=== PATIENT | female | born 1945 | race Caucasian/White ===

== ENCOUNTER → 2016-08-19 | Outpatient (CLI) | payer OTHER ==
[~2016-08-19] MED LIST: AMOX875T PO; ASCA500 PO; ASPEC81 PO; ATOR10TA88 PO; CALCTAB5 PO; CLX20 PO; FRRG PO; FSM70 PO; GARLIC SUPPLEMENT; GLC/500 PO; HEALTH PO; LEVO88TA3 PO; MULT-506 PO; PRED20TA PO; PRT/40 PO; SYN75 PO; TRAM37.52 PO; VITA400C15 PO; [UNRECOGNIZED DRUG - OTHER]
--- NOTE | 2016-08-19 08:26 | DIAGNOSTIC IMAGING REPORT ---
SINUS CT CT DOSE: 501.27 mGy.cm HISTORY: CHRONIC SINUSITIS TECHNIQUE: Multiaxial CT images of the paranasal sinuses were performed and reformatted in the coronal plane without the use of contrast. COMPARISON: Sinus CT 03/21/2007. FINDINGS: The right frontal sinus is not pneumatized. Mild mucosal thickening within the left frontal sinus and residual ethmoid air cells. Mild mucosal thickening within the sphenoid sinuses with bubbly secretions within the left sphenoid sinus. This has slightly progressed. Left nasal septal deviation. There is also a 1.9 cm anterior nasal septal perforation, unchanged. There is also slight progression of the small fluid levels and moderate mucosal thickening within the bilateral maxillary sinuses. The mastoid air cells are clear. Status post bilateral uncinectomies and partial ethmoidectomies. Opacified right cynthia bullosa. The orbits and visualized brain parenchyma are unremarkable. IMPRESSION: 1. Slight progression of the acute on chronic paranasal sinusitis as described above. 2. Interval uncinectomy since partial ethmoidectomies. 3. Left nasal septal deviation and nasal septal perforation are again noted. Electronically signed by: Moses March M.D. 08/19/2016 8:32 AM Dictated Date/Time: 08/19/2016 8:23 AM
== END | disposition home or self-care (01) ==
LOC: C.CTS 08:04
PROVIDERS: ATTEND Otolaryngology
DX: J32.9 Chronic sinusitis, unspecified (principal); J34.2 Deviated nasal septum

== ENCOUNTER → 2016-09-30 | Outpatient (CLI) | payer OTHER ==
[~2016-09-30] MED LIST changes: -ASCA500 PO; -CLX20 PO; -FRRG PO; -FSM70 PO; -GARLIC SUPPLEMENT; -SYN75 PO; -VITA400C15 PO; -[UNRECOGNIZED DRUG - OTHER]
== END | disposition home or self-care (01) ==
LOC: C.CPL 14:38
PROVIDERS: ATTEND Otolaryngology
DX: Z01.810 Encounter for preprocedural cardiovascular examination (principal); I49.1 Atrial premature depolarization

== ENCOUNTER → 2016-10-03 | Outpatient (CLI) | payer OTHER ==
--- NOTE | 2016-10-04 14:36 | MAMMOGRAPHY REPORT ---
BILATERAL DIGITAL SCREENING MAMMOGRAM WITH CAD: 10/03/2016 CLINICAL HISTORY: Routine screening. Patient has no complaints. TECHNIQUE: Bilateral CC, MLO and a repeat left MLO view was performed as a technical repeat due to mo tion. Current study was also evaluated with a Computer Aided Detection (CAD) system. COMPARISON: Comparison is made to exams dated: 10/02/2015 mammogram, 09/17/2014 mammogram, 09/16/2013 m ammogram, 09/14/2012 mammogram, 09/14/2011 mammogram, and 09/01/2010 mammogram - [facility] enter. BREAST COMPOSITION: The tissue of both breasts is almost entirely fatty. FINDINGS: There are a few benign round calcifications in the breasts. A stable 2mm grouping of punct ate monomorphic microcalcifications in the lower outer posterior left breast is unchanged dating back to at least 2012, therefore likely benign. No new suspicious mass, architectural distortion or clus ter of microcalcifications is seen. IMPRESSION: ACR BI-RADS CATEGORY 1: NEGATIVE There is no mammographic evidence of malignancy. A 1 year screening mammogram is recommended. The pa tient will receive written notification of the results. Approximately 10% of breast cancers are not detected with mammography. A negative mammographic report should not delay biopsy if a clinically suggestive mass is present. Rosita Morelos M.D. ay/:10/04/2016 13:43:12 Office Clerk Assistant: Catherine PEDRO)(Libby), [facility] letter sent: Normal 1/2 BI-RADS Code: ACR BI-RADS Category 1: Negative
== END | disposition home or self-care (01) ==
LOC: C.MAMM 14:24
PROVIDERS: ATTEND Family Medicine
DX: Z12.31 Encounter for screening mammogram for malignant neoplasm of breast (principal)

== ENCOUNTER → 2016-10-06 | Day surgery (SDC) | payer OTHER ==
[2016-09-27 08:20] VITALS: Ht 165.1 cm; Wt 84.1 kg
--- NOTE | 2016-10-05 16:00 | History and Physical: Surg Cnt ---
History & Physical Date Oct 05, 2016. Chief Complaint chronic sinusitis History of Present Illness The patient is a 71 year old female with complaints of chronic sinusitis, septal perforation Additional History Hepatic Disease: No Endocrine Disorder: No Kidney Disease: No Hypertension: No Heart Disease: No Bleeding Tendencies: No Infectious Diseases: No Allergies Coded Allergies: Adhesives (Verified Allergy, Mild, rash, 08/07/07) NO KNOWN DRUG ALLERGIES (Verified Allergy, Unknown, ., 09/27/16) Home Medications Scheduled Amoxicillin & Pot Clavulanate (Augmentin 875-125 mg), 1 TAB PO BID Aspirin Enteric Coated (Ecotrin Or Generic *), 81 MG PO Q2D Atorvastatin (Lipitor), 5 MG PO QAM Calcium (Caltrate), 1 TAB PO BID Levothyroxine Sodium (Levothyroxine Sodium), 88 MCG PO QAM Metformin Hcl (Glucophage), 500 MG PO QAM Multivitamin (Multivitamin), 1 TAB PO BID Pantoprazole (Pantoprazole Sodium), 40 MG PO QAM Prednisone (Prednisone), 20 MG PO UD [Heart Health], 1 TAB PO BID Physical Examination Skin: warm/dry, no rash Eyes: normal inspection, EOMI, sclerae normal ENT: normal ENT inspection, pharynx normal, + pertinent finding (septal perforation, deviation to left, adhesions and mucopurulent drainage) Head: normocephalic, atraumatic Neck: supple, no adenopathy, trachea midline Respiratory/Chest: lungs clear, normal breath sounds, no respiratory distress Cardiovascular: regular rate, rhythm, no edema, no murmur Abdomen / GI: normal bowel sounds, non tender Back: normal inspection Extremities: normal inspection, normal range of motion Neurologic/Psych: no motor/sensory deficits, alert, normal reflexes, oriented x 3 Diagnosis chronic sinusitis Plan of Treatment endoscopic sinus surgery, balloon eustschian tubes
[~2016-10-06] VITALS: Ht 165.1 cm; Wt 84.1 kg
[~2016-10-06] MED LIST changes: +ATROPINE SULFATE 0.1 MG/ML 5ML SYR IV PRN; +BACITRACIN OINT 15 GM TUBE ONE; +CEFAZOLIN 2000 MG/60 ML D5W IV SCH; +DEXAMETHASONE SOD INJ 4 MG/ML VIAL ONE; +EpHEDrine SULFATE INJ 50 MG/ML AMP IV PRN; +EpINEphrine INJ 1MG/ML AMP 1 MG/ML AMP ONE; +FENTANYL CITRATE INJ 50 MCG/1 ML 2 ML VIAL IV PRN; +FENTANYL CITRATE INJ 50 MCG/1 ML 2 ML VIAL ONE; +FLUMAZENIL 0.1 MG/1 ML 10 ML VIAL IV PRN; +GELATIN SPONGE 12-7MM ONE; +GLYCOPYRROLATE INJ 0.2 MG/ML VIAL ONE; +LABETALOL HCL IV 5 MG/ML 20ML IV PRN; +LACTATED RINGER'S 1000ML 1,000 ML IV SCH; +LIDO 2%/EPINEPHRINE 1:100000 20 ML VIAL INFIL ONE; +LIDOCAINE 4% MPF SOAK 5 ML = 1 DOSE TOP ONE; +LIDOCAINE HCL 2% 2 ML VIAL (20MG/ML) ONE; +MIDAZOLAM HCL 1 MG/ML 2ML VIAL ONE; +NALOXONE HCL 0.4 MG/1 ML VIAL/CARP IV PRN; +NEOSTIGMINE METHYLSULFATE 5 MG/5 ML SYR ONE; +ONDANSETRON INJ 2 MG/ML 2 ML VIAL IV PRN; +ONDANSETRON INJ 2 MG/ML 2 ML VIAL ONE; +PROMETHAZINE HCL INJ 12.5 MG in SODIUM CHLORIDE 0.9% 50ML 50 ML IV PRN; +PROPOFOL IV EMULSION 10 MG/ML 20 ML VIAL IV ONE; +SODIUM CHLORIDE 0.9% 1000ML 1,000 ML IV SCH; +SUCCINYLCHOLINE CHLORIDE 20 MG/ML 10 ML VIAL IV ONE; +TRAMADOL/ACETAMINOPHEN 37.5/325MG TAB PO PRN
--- NOTE | 2016-10-06 06:58 | History & Physical Bridge Note ---
H&P Re-Evaluation Bridge Note: I have examined the patient, reviewed the History & Physical and in the interval since the performance of the History & Physical I have noted the following changes of clinical significance: No changes noted
--- NOTE | 2016-10-06 08:49 | Discharge Instructions-SurgCtr ---
Discharge Instructions Date of Service Oct 06, 2016. Visit Reason for Visit: Chronic Sinusitis, Adhesions, Eustachian Tube Dysf Discharge Discharge Diagnosis / Problem: same plus septal perforation with deviation to left Discharge Goals Goal(s): Improve disease control Medications Stopped Medications Name(s): Metformin last dose 10/03/16 Activity Recommendations Activity Limitations: per Instructions/Follow-up section Anesthesia . Post Anesthesia Instructions: If you have had General Anesthesia or IV Sedation: * Do not drive today. * Resume driving when surgeon permits. * Do not make important decisions or sign legal documents today. * Call surgeon for: 1. Temperature elevations greater than 101 degrees F. 2. Uncontrollable pain. 3. Excessive bleeding. 4. Persistent nausea and vomiting. 5. Medication intolerance (nausea, vomiting or rash). * For nausea and vomiting use only clear liquids such as: tea, soda, bouillon until nausea subsides, then gradually increase diet as tolerated. * If you have any concerns or questions, call your surgeon's office. If physician is unavailable and it is an emergency, call 911 or go to the nearest emergency room. . Instructions / Follow-Up Instructions / Follow-Up ACTIVITY RECOMMENDATIONS: * Being up and around is good, but no strenuous activity, heavy lifting or physical exertion for one week. * Keep your head elevated 30 degrees when lying down or sleeping. * Do not blow your nose for 48 hours, sniff back instead. * Avoid hot showers. OVER THE COUNTER MEDICATIONS: * You may use Tylenol * Avoid aspirin or aspirin containing products, e.g. as they may increase bleeding. SPECIAL CARE INSTRUCTIONS: * Expect to have bloody drainage from your nose and/or down your throat for one to three days. Change drip pad as needed. * Begin irrigating your nose with saline solution today, at least six to ten times per day and sniff back to help remove old clots or crust. * You may experience nasal and facial congestion, pain and pressure, this is normal. * Please call with any significant and/or progressive pain, redness, swelling around the eyes, visual changes, fever of 101.5 degrees F, active bleeding or any problems or concerns. * If active bleeding occurs, spray the nose three times at one minute intervals with Afrin spray and call or cell phone: . If unable to reach the doctor, go to the nearest Emergency Department. Special Diet: * Avoid extremely hot fluids. FOLLOW UP VISIT: Follow-up Visit with Dr. Gambino If not already scheduled, please call to schedule. Diet Recommendations Home Diet: no limitations Procedures Procedures Performed: Endoscopic Sinus Surgery, Right and Left Frontal, Right and Left Sphenoid, Right and Left Maxillary, Right and Left Total Ethmoidal Sinusotomies, Septoplasty, Bilateral Balloon Eustachian Tubes Pending Studies Studies pending at discharge: no Medical Emergencies . Who to Call and When: Medical Emergencies: If at any time you feel your situation is an emergency, please call 911 immediately. . Non-Emergent Contact Non-Emergency issues call your: Primary Care Provider . . "Provider Documentation" section prepared by Xi Gambino. . [place] Drug Monitoring Program Search Results: no issues identified
--- NOTE | 2016-10-06 09:17 | OPERATIVE REPORT ---
DATE OF OPERATION: 10/06/2016 PREOPERATIVE DIAGNOSIS: Chronic sinusitis and eustachian tube dysfunction. POSTOPERATIVE DIAGNOSIS: Same plus septal deviation with septal perforation causing obstruction on the left side. PROCEDURE: Right and left frontal, right and left sphenoid, right and left total ethmoid and right and left maxillary sinus antrostomies with ballooning of eustachian tubes and endoscopic septoplasty. SURGEON: Dr. Gambino. ANESTHESIA: General endotracheal. COMPLICATIONS: None. BLOOD LOSS: 30 mL. HISTORY OF PRESENT ILLNESS: A 71-year-old lady recurrent chronic sinusitis surgery by me 9 years ago, found to have persistent sinusitis for the last [address] scan with sphenoid, maxillary, ethmoid mucosal thickening and left nasofrontal sinus mucosal thickening with hypoplastic right frontal sinus. Above procedure was felt to be indicated. PROCEDURE: The patient was brought to the operating room and placed in supine position. General endotracheal anesthesia was induced, prepped, draped in usual sterile manner. Nose decongested using cottonoids with a solution of 4 mL of 4% Xylocaine with 1 mL of epinephrine. Injection of 2% Xylocaine with 1:100,000 strength epinephrine was also used. BrainJustinmind device calibrated and used for the procedure. The right sphenoid was cannulated with guidewire and dilated using the 6 mm balloon. The guidewire was removed and the sphenoid sinus was irrigated clean with saline. The left sphenoid was also cannulated, dilated and irrigated with the 6 mm balloon with BrainLAB computer guidance. The left nasofrontal duct was cannulated with guidewire and dilated using the 6 mm balloon. Guidewire was left in place as a marker for our frontal sinusotomy. The adhesions from the middle turbinate laterally were removed using the shaver. Dissection was continued removing polypoid tissue in the anterior and then the posterior ethmoid opening up the residual air cells posteriorly, opening up the entire ethmoid cavity and opening up the previously dilated nasal frontal duct. The sphenoid was opened by removing polypoid tissue at the inferior border of the superior turbinate at the anterior face of the sphenoid. 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 This was found using the seeker and then opened by connecting it to the antrostomy opening using the seeker and then using the shaver to connect the 2 openings. Part of the mucosa was biopsied using the biting Blakesley forceps. A culture was also taken of the left maxillary sinus. A right frontal sinusotomy, total ethmoidectomy, maxillary sinus antrostomy and sphenoidotomy was performed in a similar manner. The right frontal sinus was hypoplastic and was opened using the shaver removing scar tissue and adhesions blocking the nasofrontal duct. The ethmoids were also opened. The right maxillary sinus was also opened from the previous antrostomy. At this point, ballooning of the eustachian tubes were performed using the same balloon without guidewire dilating each eustachian tube at 12 atmospheric pressures with the balloon distended for 1 minute on each side. Because of the obstruction toward the left side endoscopic septoplasty was performed behind the septal perforation. Incision was made along the septum using the 15 blade and mucoperichondrium was elevated off the left side of the septum and then bilateral posterior tunnels were made to isolate a large bony and cartilaginous spur projecting to the left. This was removed using the Pershing dissector and the Blakesley forceps and the John-Sherry rongeurs returning the septum to the midline. Propel stents were placed in the middle meatus area. The septum was packed with pieces of Gelfoam with a half on each side of the septum posterior to the septal perforation. The patient tolerated the procedure well and was taken to recovery area in satisfactory condition. I attest to the content of the Intraoperative Record and any orders documented therein. Any exceptions are noted below. [place]
[2016-10-06 09:20] VITALS: TEMP 36.7
--- NOTE | 2016-10-06 09:41 | Anesthesia Progress Nt - [facility] ---
Anesthesia Post Op Note Date & Time Oct 06, 2016 at 09:41 Vital Signs Pain Intensity: 0 Vital Signs Past 12 Hours Date Time Temp Pulse Resp B/P (MAP) Pulse Ox O2 Delivery O2 Flow Rate FiO2 10/06/16 09:20 36.7 66 16 161/76 (104) 97 Room Air 10/06/16 09:15 152/97 10/06/16 09:14 36.6 68 14 97 Room Air 10/06/16 09:13 66 13 98 10/06/16 09:13 68 13 10/06/16 09:12 67 12 96 10/06/16 09:12 68 12 10/06/16 09:10 145/82 10/06/16 09:07 68 19 10/06/16 09:07 70 19 99 10/06/16 09:06 66 13 10/06/16 09:06 68 13 99 10/06/16 09:05 153/92 10/06/16 09:01 70 15 10/06/16 09:01 74 15 98 10/06/16 09:00 148/78 10/06/16 08:56 74 13 10/06/16 08:56 76 13 99 10/06/16 08:55 157/87 10/06/16 08:54 69 13 10/06/16 08:54 69 13 99 10/06/16 08:51 157/92 10/06/16 08:49 78 13 136/104 99 10/06/16 08:49 36.1 78 16 136/104 97 Humidified Oxygen 6 Mask 10/06/16 08:49 76 13 10/06/16 06:29 37 77 16 144/81 (102) 98 Room Air Notes Mental Status: alert / awake / arousable, participated in evaluation Pt Amnestic to Procedure: Yes Nausea / Vomiting: adequately controlled Pain: adequately controlled Airway Patency, RR, SpO2: stable & adequate BP & HR: stable & adequate Hydration State: stable & adequate Anesthetic Complications: no major complications apparent
[2016-10-06 09:47] VITALS: BP 154/78; PULSE 64; O2SAT 99
== END | disposition home or self-care (01) ==
LOC: X.SURG 06:14
PROVIDERS: ATTEND Otolaryngology
DX: J34.2 Deviated nasal septum (principal); J01.41 Acute recurrent pansinusitis; H69.83 Other specified disorders of Eustachian tube, bilateral; E03.9 Hypothyroidism, unspecified; E11.9 Type 2 diabetes mellitus without complications; E78.5 Hyperlipidemia, unspecified

== ENCOUNTER 2017-04-04 16:13 | Emergency (ER) | payer OTHER ==
[~2017-04-04] VITALS: Ht 165.1 cm; Wt 75.7 kg
[~2017-04-04 16:13] MED LIST changes: +ATOR10TA82 PO; -ATOR10TA88 PO; -ATROPINE SULFATE 0.1 MG/ML 5ML SYR IV PRN; -BACITRACIN OINT 15 GM TUBE ONE; -CEFAZOLIN 2000 MG/60 ML D5W IV SCH; -DEXAMETHASONE SOD INJ 4 MG/ML VIAL ONE; -EpHEDrine SULFATE INJ 50 MG/ML AMP IV PRN; -EpINEphrine INJ 1MG/ML AMP 1 MG/ML AMP ONE; -FENTANYL CITRATE INJ 50 MCG/1 ML 2 ML VIAL IV PRN; -FENTANYL CITRATE INJ 50 MCG/1 ML 2 ML VIAL ONE; -FLUMAZENIL 0.1 MG/1 ML 10 ML VIAL IV PRN; -GELATIN SPONGE 12-7MM ONE; -GLYCOPYRROLATE INJ 0.2 MG/ML VIAL ONE; -LABETALOL HCL IV 5 MG/ML 20ML IV PRN; -LACTATED RINGER'S 1000ML 1,000 ML IV SCH; -LIDO 2%/EPINEPHRINE 1:100000 20 ML VIAL INFIL ONE; -LIDOCAINE 4% MPF SOAK 5 ML = 1 DOSE TOP ONE; -LIDOCAINE HCL 2% 2 ML VIAL (20MG/ML) ONE; -MIDAZOLAM HCL 1 MG/ML 2ML VIAL ONE; -NALOXONE HCL 0.4 MG/1 ML VIAL/CARP IV PRN; -NEOSTIGMINE METHYLSULFATE 5 MG/5 ML SYR ONE; -ONDANSETRON INJ 2 MG/ML 2 ML VIAL IV PRN; -ONDANSETRON INJ 2 MG/ML 2 ML VIAL ONE; +PANT40TA2 PO; -PRED20TA PO; -PROMETHAZINE HCL INJ 12.5 MG in SODIUM CHLORIDE 0.9% 50ML 50 ML IV PRN; -PROPOFOL IV EMULSION 10 MG/ML 20 ML VIAL IV ONE; -PRT/40 PO; -SODIUM CHLORIDE 0.9% 1000ML 1,000 ML IV SCH; -SUCCINYLCHOLINE CHLORIDE 20 MG/ML 10 ML VIAL IV ONE; -TRAM37.52 PO; -TRAMADOL/ACETAMINOPHEN 37.5/325MG TAB PO PRN
[2017-04-04 16:18] VITALS: Ht 165.1 cm; Wt 75.7 kg
[2017-04-04] MEDS ORDERED: XYLOCAINE 1%/SOD BICARB 20 ML VIAL INFIL STA (16:29)
[2017-04-04] MEDS ORDERED: DIPHTHERIA/TETANUS/PERTUSSIS 0.5 ML SYR/VIAL IM. ONE (16:30)
--- NOTE | 2017-04-04 17:04 | EMERGENCY ROOM VISIT NOTE ---
ED Visit Note First contact with patient: 16:21 CHIEF COMPLAINT: Splinter in left thumb HISTORY OF PRESENT ILLNESS: This 71-year-old [id number] female patient presents to the emergency department, ambulatory, approximately 6 hours after getting a large splinter in her left thumb. The patient states she was looking for her cat, and standing on a stairway. She states she backed down the steps when she accidentally missed a step, grabbing the handrail and noticing a wood splinter in the pad of her left thumb. The bleeding has stopped. Denies weakness or numbness of the finger. The patient has full range of motion of the fingers. The patient rates the pain as throbbing and 5/10. The patient denies any other injuries. The patient's tetanus shot is not up to date. She did go to work today to find coverage, and then went to urgent care. At urgent care, they were concerned about attempts to remove the splinter, so sent her to the emergency department. REVIEW OF SYSTEMS: A 6 system review of systems was completed with positives and pertinent negatives listed in the HPI. ALLERGIES: Adhesives MEDICATIONS: Synthroid, metformin, atorvastatin, Zantac PMH: GERD, hypothyroidism, diabetes, hyperlipidemia SOCIAL HISTORY: The patient lives locally with family. She denies drug, alcohol , tobacco use. PHYSICAL EXAM: Vital Signs: Reviewed Nurse's notes, vital signs stable. GENERAL : This is a 71-year-old white female, in no acute distress, well developed, well nourished. SKIN: There is a wood splinter which extends through the pad of the thumb and exits at approximately the midportion of the thumb. There is no bleeding. No deep structures such as tendons, bones, or significant blood vessels are seen in the base of the wound. Extension and flexion of the finger is full and strong. Full range of motion of the wrist and other fingers. Capillary refill less than 2 seconds. Normal sensation to light and sharp touch. EMERGENCY DEPARTMENT COURSE: I examined the patient. Verbal consent was obtained to perform the procedure. Using sterile technique the wound was cleansed with Betadine. 4 ml of 1% buffered lidocaine was used to perform a digital block to anesthetize the patient. The area was sterilely draped. Once the patient was anesthetized, the thumb was cleansed with betadine. The splinter was removed successfully with forceps from one end. There was no retained foreign body noted. The wound was copiously irrigated under pressure with sterile saline. The patient tolerated the procedure well. The area was cleaned with sterile saline and the wound was dressed with bacitracin ointment and a bandage. The patient will be started on 5 days of Keflex prophylactically due to the length of time the splinter remained embedded. Discharge instructions reviewed. The patient was discharged home in good condition. The patient was seen and evaluated by Dr. Castorena. I attest that I have personally reviewed the patient's current medication list. Blood Pressure Screening: Patient was found to have a slightly elevated blood pressure due to circumstances. I do not believe that the patient requires hypertension monitoring. Differential diagnosis includes fracture, foreign body, splinter, cellulitis, infection, abscess, and others DIAGNOSIS: Foreign body of left thumb, embedded wood splinter Current/Historical Medications Scheduled Amoxicillin & Pot Clavulanate (Augmentin 875-125 mg), 1 TAB PO BID Aspirin Enteric Coated (Ecotrin Or Generic *), 81 MG PO Q2D Atorvastatin (Lipitor), 5 MG PO QAM Calcium (Caltrate), 1 TAB PO BID Cephalexin Monohydrate (Keflex), 500 MG PO TID Levothyroxine Sodium (Levothyroxine Sodium), 88 MCG PO QAM Metformin Hcl (Glucophage), 500 MG PO QAM Multivitamin (Multivitamin), 1 TAB PO BID Pantoprazole (Pantoprazole Sodium), 40 MG PO QAM [Heart Health], 1 TAB PO BID Allergies Coded Allergies: Adhesives (Verified Allergy, Mild, rash, 04/04/17) Vital Signs Date Time Temp Pulse Resp B/P (MAP) Pulse Ox O2 Delivery O2 Flow Rate FiO2 04/04/17 16:18 36.8 73 20 176/82 99 Room Air Medications Administered Medications (Trade) Dose Ordered Sig/Chasidy Route Start Time Stop Time Status Last Admin Dose Admin Diphtheria/ Pertussis/Tetanus Vacc (Adacel Inj) 0.5 ml ONCE ONCE IM. 04/04/17 16:30 04/04/17 16:31 DC 04/04/17 16:43 0.5 ML Departure Information Impression Primary Impression: Embedded wood splinter Additional Impression: Foreign body finger Dispostion Home / Self-Care Condition GOOD Prescriptions Cephalexin Monohydrate (Keflex) 500 Mg Cap 500 MG PO TID for 5 Days, #15 CAP Prov: Charito Mg, ANALI 04/04/17 Referrals Flaquito Neal DO (PCP) Patient Instructions ED Foreign Body Splinter Removal, [facility] Additional Instructions You were seen in the emergency department today for a splinter in your left thumb. This was successfully removed. Cephalexin(Keflex) 500mg: Take one pill three times daily for 5 days to prevent skin infection. All antibiotics can cause diarrhea. If this occurs and you feel worse or it does not resolve in 1-2 days follow up with your doctor or return to the Emergency Department as this could be signs of serious underlying problems. Any medication can cause an allergic reaction, stop the pills immediately and return to the ER for rash, hives, breathing difficulties, or swelling. Please keep the wound clean and dry. This can be done with soap and water. Please keep the wound bandaged with antibiotic ointment and a clean dressing for the next 24-48 hours or until it has closed. After this time, you can keep the wound open to air. Follow-up with your PCP for re-check in 2-3 days. Return to the ED for significant redness, swelling, purulent drainage, fever, chills, nausea, body aches, or other concerning symptoms. Problem Qualifiers
[2017-04-04] MEDS ORDERED: CEPH500C PO (17:16)
--- NOTE | 2017-04-04 17:27 | EMERGENCY ROOM VISIT NOTE ---
ED Visit Note First contact with patient: 16:21 The patient was seen and examined with Charito Mg PA-C. I agree with the history, physical and findings. Please see the note for disposition and details.
[2017-04-04 17:37] VITALS: BP 140/70; PULSE 58; TEMP 36.8; O2SAT 98
== END 2017-04-04 17:39 | disposition home or self-care (01) ==
LOC: C.EDB 16:16 → C.EDD 17:39
DX: S60.352A Superficial foreign body of left thumb, initial encounter (principal); W45.8XXA Other foreign body or object entering through skin, initial encounter; Y92.89 Other specified places as the place of occurrence of the external cause; E03.9 Hypothyroidism, unspecified; K21.9 Gastro-esophageal reflux disease without esophagitis; E11.9 Type 2 diabetes mellitus without complications; E78.5 Hyperlipidemia, unspecified; Z91.048 Other nonmedicinal substance allergy status; Z79.899 Other long term (current) drug therapy

== ENCOUNTER → 2017-10-09 | Outpatient (CLI) | payer OTHER ==
--- NOTE | 2017-10-10 06:58 | MAMMOGRAPHY REPORT ---
BILATERAL DIGITAL SCREENING MAMMOGRAM TOMOSYNTHESIS WITH CAD: 10/09/2017 CLINICAL HISTORY: Routine screening. Patient has no complaints. TECHNIQUE: The study was acquired using full field digital technology and interpreted from soft copy. Breast tomosynthesis in addition to standard 2D mammography was performed. Current study was also ev aluated with a Computer Aided Detection (CAD) system. COMPARISON: Comparison is made to exams dated: 10/03/2016 mammogram, 10/02/2015 mammogram, 09/17/2014 m ammogram, 09/16/2013 mammogram, 09/14/2012 mammogram, and 09/14/2011 mammogram - [facility] enter. BREAST COMPOSITION: The tissue of both breasts is almost entirely fatty. FINDINGS: There are a few benign rim calcifications in the breasts. No suspicious mass, architectural distortion or cluster of microcalcifications is seen. IMPRESSION: ACR BI-RADS CATEGORY 1: NEGATIVE There is no mammographic evidence of malignancy. A 1 year screening mammogram is recommended.( 019) The patient will receive written notification of the results. Some breast cancers are not detected with mammography. A negative mammographic report should not zenia y biopsy if a clinically suggestive mass is present. Rosita Morelos M.D. ay/:10/09/2017 15:38:45 Boilermaker Apprentice: RT Opal(Philippe)(M), [facility] letter sent: Normal 1/2 BI-RADS Code: ACR BI-RADS Category 1: Negative
== END | disposition home or self-care (01) ==
LOC: C.MAMM 14:18
PROVIDERS: ATTEND Family Medicine
DX: Z12.31 Encounter for screening mammogram for malignant neoplasm of breast (principal)

== ENCOUNTER 2020-12-07 05:12 | Observation (INO) ==
--- NOTE | 2020-11-24 11:58 | PAT Medication Instructions ---
Medication Instructions Date of Service November 24, 2020 Home Medications atorvastatin 10 mg tablet (Lipitor) 5 mg PO QAM metformin 500 mg tablet 500 mg PO QAM multivitamin 1 tab PO QAM meloxicam 15 mg tablet 15 mg PO QAM aspirin 81 mg tablet,delayed release (Adult Low Dose Aspirin) 81 mg PO Q2D esomeprazole magnesium 20 mg capsule,delayed release (Nexium) 15 mg PO QAM levothyroxine 75 mcg tablet (Synthroid) 75 mcg PO DIRECTED levothyroxine 88 mcg tablet (Synthroid) 88 mcg PO DIRECTED omega-3 fatty acids 500 mg capsule 500 mg PO BID calcium citrate 315 mg-vitamin D3 5 mcg (200 unit) tablet (Calcium Citrate + D) 1 tab PO BID triamcinolone acetonide 0.1 % topical ointment 1 appln TOP BID PRN acetaminophen 650 mg tablet,extended release 1,300 mg PO Q12H PRN ascorbic acid (vitamin C) 500 mg tablet (Vitamin C) 500 mg PO QPM mupirocin 2 % topical ointment 1 applic TOPICAL BID PRN ASK your surgeon for instructions meloxicam 15 mg tablet 15 mg PO QAM STOP taking 2 weeks before surgery (or as soon as possible if surgery is within 2 weeks) omega-3 fatty acids 500 mg capsule 500 mg PO BID STOP taking 24 hours before surgery triamcinolone acetonide 0.1 % topical ointment 1 appln TOP BID PRN mupirocin 2 % topical ointment 1 applic TOPICAL BID PRN DO NOT take the morning of surgery metformin 500 mg tablet 500 mg PO QAM multivitamin 1 tab PO QAM calcium citrate 315 mg-vitamin D3 5 mcg (200 unit) tablet (Calcium Citrate + D) 1 tab PO BID ascorbic acid (vitamin C) 500 mg tablet (Vitamin C) 500 mg PO QPM Take morning of surgery With a small sip of water, OTHERWISE NOTHING TO EAT OR DRINK AFTER MIDNIGHT: atorvastatin 10 mg tablet (Lipitor) 5 mg PO QAM esomeprazole magnesium 20 mg capsule,delayed release (Nexium) 15 mg PO QAM levothyroxine acetaminophen 650 mg tablet,extended release 1,300 mg PO Q12H PRN (okay to take up to 4 hours prior to surgery if needed) Take evening before surgery calcium citrate 315 mg-vitamin D3 5 mcg (200 unit) tablet (Calcium Citrate + D) 1 tab PO BID acetaminophen 650 mg tablet,extended release 1,300 mg PO Q12H PRN (if needed) ascorbic acid (vitamin C) 500 mg tablet (Vitamin C) 500 mg PO QPM Other Notes If you have any questions please call us at [phone] or [phone] or [phone] or [phone]
--- NOTE | 2020-11-26 11:32 | Anesthesiology Consultation ---
Date of Service November 26, 2020 Assessment & Plan (1) Encounter for pre-operative examination: - COVID screening: Per assessment on 11/26: Travel screen negative, no known COVID-19 positive contacts or current COVID-19 related symptoms. Patient vaccin ated. Surgeon arranging preop COVID testing. Awaiting results. - Check [facility] AM DOS Chart Review Chart Review: Acceptable Risk for Surgery and Patient seen in Pre Admission Testing Teaching & Discussion Pre-Anesthesia Teaching/Discussion Notes: Instructed NPO after midnight before surgery,except medications with 15 cc of water. Medication instructions provided according to the PAT guidelines. History Surgery Operation Date: 12/07/20 11:35 Proposed Procedures p Right Total Knee Arthroplasty - Baltazar Phillips MD Height/Weight Height: 5 ft 5 in Weight: 77.7 kg Allergies Allergy/AdvReac Type Severity Reaction Status Date / Time nitrofurantoin Allergy Intermediate Hives Verified 11/18/20 07:57 [From Macrobid] pepper (genus Capsicum) Allergy Intermediate Skin Verified 11/26/20 11:23 Blisters (with pepper contact) adhesive Allergy Mild Rash (some Verified 11/26/20 11:23 tapes) Medications Home Medications Medication Instructions Recorded Confirmed Last Taken atorvastatin 10 mg tablet (Lipitor) 5 mg PO QAM 03/21/19 11/18/20 11/09/20 metformin 500 mg tablet 500 mg PO QAM 03/21/19 11/18/20 11/09/20 multivitamin 1 tab PO QAM 12/31/19 11/18/20 11/09/20 meloxicam 15 mg tablet 15 mg PO QAM 04/01/20 11/18/20 11/09/20 aspirin 81 mg tablet,delayed 81 mg PO Q2D 10/29/20 11/18/20 11/09/20 release (Adult Low Dose Aspirin) esomeprazole magnesium 20 mg 15 mg PO QAM cap 10/29/20 11/18/20 11/09/20 capsule,delayed release (Nexium) levothyroxine 75 mcg tablet 75 mcg PO DIRECTED 10/29/20 11/18/20 Unknown (Synthroid) levothyroxine 88 mcg tablet 88 mcg PO DIRECTED 10/29/20 11/18/20 Unknown (Synthroid) omega-3 fatty acids 500 mg capsule 500 mg PO BID 09/11/1011/18/20 11/09/20 calcium citrate 315 mg-vitamin D3 1 tab PO BID 11/10/20 11/18/20 11/09/20 5 mcg (200 unit) tablet (Calcium Citrate + D) triamcinolone acetonide 0.1 % 1 appln TOP BID PRN 11/10/20 11/18/20 Unknown topical ointment acetaminophen 650 mg 1,300 mg PO Q12H PRN 11/18/20 11/18/20 Unknown tablet,extended release ascorbic acid (vitamin C) 500 mg 500 mg PO QPM 11/18/20 11/18/20 Unknown tablet (Vitamin C) mupirocin 2 % topical ointment 1 applic TOPICAL BID PRN 11/18/20 11/18/20 Unknown sulfamethoxazole 800 1 tab PO BID 3 Days #6 tab 11/25/20 Unknown mg-trimethoprim 160 mg tablet (Bactrim DS) Past Medical History Medical History Back pain Depression Diabetes NIDDM Dyslipidemia GERD (gastroesophageal reflux disease) controlled Hypercholesterolemia Hypothyroidism Osteoarthritis PVC's (premature ventricular contractions) s/p holter monitor Exercise / Class Metabolic Activity II 4-5 Yardwork/Stairs/Walk up hill (one FS (no CP, no SOB)) Past Family History Family History Sister Hypertension Breast cancer Colorectal cancer Grandmother (Maternal) Cancer Ovarian cancer Mother Heart disease Cardiac arrest Congestive heart failure Diabetes Myocardial infarction Father Parkinsons disease Denies family history of Hearing loss No family history of adverse response to anesthesia No family history of bleeding disorder Stroke Asthma Past Surgical History Surgical History H/O sinus surgery x2 History of colonoscopy 2012 History of foot surgery Right ligament repair History of hysterectomy 1977 History of oophorectomy History of shoulder surgery Right History of thyroidectomy r/t goiter Previous back surgery 1983 (+ injection) Past Anesthesia History No Hx of Anesthesia Complications and No Family Hx of Anesthesia Complications History of PONV No Hx of PONV and No Hx of Motion Sickness Social History Smoking Status: Former smoker Do You Dip or Chew Tobacco: No Smoking End Date: Quit age 30 Hx Alcohol Use: Yes Alcohol Intake Frequency Comment: Rare Hx Substance Use: No Review of Systems Patient denies chest pain, shortness of breath, dyspnea on exertion, fever, chills, cough, wheezing, palpitations. Physical Exam Vital Signs VITALS BP 119/74 P 71 TEMP 98.8 SP02 98%RA RESP 16 PHYSICAL Full cervical extension range of motion. Full TMJ range of motion. TMD 3 finger breaths Mallampati Score 1 Dentition: missing molars, 2 upper front crowns Lungs: clear throughout to auscultation Cardiac: regular rate and rhythm, no murmurs noted Spine: normal Carotid arteries: negative bruit Extremities: no edema Lab Results Anesthesia Preop Results Results Anesthesia Widget: WBC 10.33 K/uL (4.8-10.8) 11/26/20 Hgb 12.6 g/dL (12.0-16.0) 11/26/20 Hct 37.5 % (37-47) 11/26/20 Plt 315 K/uL (130-400) 11/26/20 Na 139 mmol/L (136-145) 11/11/20 K 4.5 mmol/L (3.5-5.1) 11/11/20 Cl 104 mmol/L (98-107) 11/11/20 CO2 28 mmol/L (21-32) 11/11/20 BUN 15 mg/dl (7-18) 11/18/20 Creat 1.01 mg/dl (0.6-1.2) 11/18/20 Glucose Level 113 mg/dl (70-99) H 11/11/20 PT 9.3 Seconds (9.0-12.0) 11/26/20 PTT 25.1 Seconds (21.0-31.0) 11/26/20 INR 0.9 (0.9-1.1) 11/26/20 HA1c 5.9 % (4.5-5.6) H 11/26/20 Urine Color Dark Yellow 11/26/20 Urine Appearance Clear (Clear) 11/26/20 Urine pH 5.5 (4.5-7.5) 11/26/20 Urine Specific [place] 1.015 (1.000-1.030) 11/26/20 Urine Protein Negative (Negative) 11/26/20 Urine Glucose (UA) Negative (Negative) 11/26/20 Urine Ketones Negative (Negative) 11/26/20 Urine Blood Negative (Negative) 11/26/20 Urine Nitrite Positive (Negative) A 11/26/20 Urine Bilirubin Negative (Negative) 11/26/20 Urine Urobilinogen Negative (Negative) 11/26/20 Urine Leukocyte Esterase 2+ (Negative) H 11/26/20 Urine WBC (Auto) >30 /hpf (0-5) H 11/26/20 Urine RBC (Auto) 0-4 /hpf (0-4) 11/26/20 Urine Hyaline Casts (Auto) 1-5 /lpf (0-5) 11/26/20 Urine Epithelial Cells (Auto) >30 /lpf (0-5) H 11/26/20 Urine Bacteria (Auto) Negative (Negative) 11/26/20 Blood Type O Positive 11/26/20 Antibody Screen NEGATIVE 11/26/20 Testing Electrocardiogram Date: 11/11/20 Sinus arrhythmia at 67bpm. Normal variant of ECG. Chest X-Ray Date: 11/26/20 Findings: + NAD Other Testing 24 Hour Holter monitor (05/20/20): The rhythm was sinus throughout with a minimum heart rate of 58 beats per minute, a maximum heart rate of 123 beats per minute and an average heart rate of 84 beats per minute. There were frequent brief episodes of increased heart rate which appeared to be a sinus mechanism. There was a normal diurnal heart rate variation. There were 26 isolated premature ventricular beats with no couplets or runs. There were 561 isolated premature supraventricular beats with 1 couplet and no runs. There were no pauses in excess of 2 seconds.
--- NOTE | 2020-12-06 08:14 | History & Physical Report ---
Date of Service December 06, 2020 Assessment & Plan (1) Primary osteoarthritis of right knee: Plan: Treatment options discussed with the patient. She has failed conservative measures. She would like to proceed with surgical intervention. Risks, benefits and alternatives to surgery including but not limited to infection, DVT, pain, stiffness, need for revision surgery, damage to blood vessels, damage to nerves, PE, , were discussed with the patient and they wish to proceed. Plan for right total knee arthroplasty at [facility] on December 07 in the outpatient joint program. We will plan on aspirin 81 mg twice daily x1 month for postop DVT prophylaxis. We will plan on home health PT postop. All questions were answered. She will follow up postoperatively. History of Present Illness Chief Complaint: Right knee pain Primary Care Provider: Flaquito Neal 75-year-old female with past medical history significant for hypothyroidism, GERD, recurrent UTI, DM 2 who presents with ongoing right knee pain. Pain is interfering with her ability to carry out normal daily activities. She has failed conservative measures including anti-inflammatories, injections, therapy. She previously underwent arthroscopy with no relief in her knee pain. She would like to proceed with replacement. Patient denies headaches, sweats, fevers, chills, double vision, blurred vision, cough, sore throat, dysphagia, chest pain, sob, wheezing, n/v/d/c, numbness, tingling, fatigue, urinary symptoms, mood disorders. ROS positive for right knee pain and stiffness. Allergies Allergy/AdvReac Type Severity Reaction Status Date / Time nitrofurantoin Allergy Intermediate Hives Verified 11/18/20 07:57 [From Macrobid] pepper (genus Capsicum) Allergy Intermediate Skin Verified 11/26/20 11:23 Blisters (with pepper contact) adhesive Allergy Mild Rash (some Verified 11/26/20 11:23 tapes) Home Medications Medication Instructions Recorded Confirmed Type atorvastatin 10 mg tablet (Lipitor) 5 mg PO QAM 03/21/19 11/18/20 History metformin 500 mg tablet 500 mg PO QAM 03/21/19 11/18/20 History multivitamin 1 tab PO QAM 12/31/19 11/18/20 History meloxicam 15 mg tablet 15 mg PO QAM 04/01/20 11/18/20 History aspirin 81 mg tablet,delayed 81 mg PO Q2D 10/29/20 11/18/20 History release (Adult Low Dose Aspirin) esomeprazole magnesium 20 mg 15 mg PO QAM cap 10/29/20 11/18/20 History capsule,delayed release (Nexium) levothyroxine 75 mcg tablet 75 mcg PO DIRECTED 10/29/20 11/18/20 History (Synthroid) levothyroxine 88 mcg tablet 88 mcg PO DIRECTED 10/29/20 11/18/20 History (Synthroid) omega-3 fatty acids 500 mg capsule 500 mg PO BID 10/29/20 11/18/20 History calcium citrate 315 mg-vitamin D3 1 tab PO BID 11/10/20 11/18/20 History 5 mcg (200 unit) tablet (Calcium Citrate + D) triamcinolone acetonide 0.1 % 1 appln TOP BID PRN 11/10/20 11/18/20 History topical ointment acetaminophen 650 mg 1,300 mg PO Q12H PRN 11/18/20 11/18/20 History tablet,extended release ascorbic acid (vitamin C) 500 mg 500 mg PO QPM 11/18/20 11/18/20 History tablet (Vitamin C) mupirocin 2 % topical ointment 1 applic TOPICAL BID PRN 11/18/20 11/18/20 History amoxicillin 875 mg-potassium 1 tab PO BID 7 Days #14 tab 11/27/20 Rx clavulanate 125 mg tablet (Augmentin) cephalexin 500 mg capsule 500 mg PO BID 3 Days #6 cap 12/02/20 12/02/20 Rx Past Med/Surg History Medical History Back pain Depression Diabetes NIDDM Dyslipidemia GERD (gastroesophageal reflux disease) controlled Hypercholesterolemia Hypothyroidism Osteoarthritis PVC's (premature ventricular contractions) s/p holter monitor Surgical History H/O sinus surgery x2 History of colonoscopy 2011 History of foot surgery Right ligament repair History of hysterectomy 1977 History of oophorectomy History of shoulder surgery Right History of thyroidectomy r/t goiter Previous back surgery 1983 (+ injection) Family History Sister Hypertension Breast cancer Colorectal cancer Grandmother (Maternal) Cancer Ovarian cancer Mother Heart disease Cardiac arrest Congestive heart failure Diabetes Myocardial infarction Father Parkinsons disease Denies family history of Hearing loss No family history of adverse response to anesthesia No family history of bleeding disorder Stroke Asthma Social History (Updated 11/18/20 @ 08:23 by Ronda Huang RN) Smoking Status: Former smoker packs per day: 1; Second Hand Exposure: Yes (RARELY); Hx Alcohol Use: Yes Alcohol Intake Frequency Comment: Very seldom Hx Substance Use: No Preferred Language: Maori Communication Ability: Effective 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 Required: No Beliefs That Will Affect Care: None marital status: / Current Living Situation: Alone Current Living Situation Comment: SON LIVES WITH PT current occupational status: retired Feels Safe at Home: Yes Assistive Devices: Glasses Review of Systems All systems reviewed & are unremarkable except as noted in HPI & below Physical Exam Constitutional: well developed and well nourished; no acute distress Eyes: PERRL, conjunctivae normal, anicteric sclerae ENMT: external ear and nose normal, oropharynx normal Neck: trachea midline, no thyromegaly Respiratory: normal respiratory effort, lungs clear to auscultation Cardiovascular: RRR, no murmur, no edema Musculoskeletal: Right knee: Active painful range of motion 0- 105 degrees. She is a mild effusion. Tenderness medial joint line. Swetha's is guarded, stable valgus varus stress test. Skin: no rashes, warm and dry Neurologic: patellar DTR's 2+ bilat, sensation intact Psychiatric: A+Ox3, euthymic affect Results & Data ([facility]) Diagnostic Findings Right knee: Tricompartmental degenerative changes with significant joint space narrowing medial compartment. She has osteophyte formation and subchondral sclerosis all 3 compartments.
[2020-12-07] MEDS ORDERED: CeleBREX 200 MG CAP PO SCH ×2 (06:00→21:00)
[2020-12-07] MEDS ORDERED: GABAPENTIN 300 MG CAP PO SCH (06:00)
[2020-12-07] MEDS ORDERED: TRANEXAMIC ACID 1,000 MG **IV Pre-op IV SCH (06:00)
[2020-12-07] MEDS ORDERED: FAMOTIDINE 20 MG TAB PO SCH (06:00)
[2020-12-07] MEDS ORDERED: TRANEXAMIC ACID 1,000 MG **IV Intra-op IV SCH (06:00)
[2020-12-07] MEDS ORDERED: ceFAZolin 1000MG 1,000 MG/7.5 ML SYR IV SCH (06:00)
[2020-12-07] MEDS ORDERED: METOCLOPRAMIDE HCL 10 MG TABLET PO SCH (06:00)
[2020-12-07] MEDS ORDERED: ROPIVACAINE 0.5% HCL/PF 150 MG, BUPIVACAINE 0.75% MPF 20 ML, EPINEPHrine 30MG/30ML (OR ... INSTIL SCH (06:00)
[2020-12-07] MEDS ORDERED: ACETAMINOPHEN 500 MG TAB PO SCH (06:00)
[2020-12-07] MEDS ORDERED: LR 500ML BOLUS, THEN 15ML/HR IV SCH (06:00)
[2020-12-07] MEDS ORDERED: LIDOCAINE 2%/EPINEPHRINE 1:200,000 20 ML SDV ONE (06:32)
[2020-12-07] MEDS ORDERED: EPINEPHrine INJ 1 MG/ML AMP ONE (06:32)
[2020-12-07] MEDS ORDERED: ROPIVACAINE 0.5% 5 MG/ML 30 ML VIAL ONE (06:33)
[2020-12-07] MEDS ORDERED: MIDAZOLAM HCL 1 MG/ML 2ML VIAL ONE ×2 (06:50)
[2020-12-07] MEDS ORDERED: LIDOCAINE 2% 2 ML VIAL/AMP(20MG/ML) INFIL ONE (06:50)
[2020-12-07] MEDS ORDERED: fentaNYL citrate 100 MCG/2 ML VIAL ONE (06:50)
[2020-12-07] MEDS ORDERED: PROPOFOL IV EMULSION 10 MG/ML 20 ML VIAL IV ONE (06:50)
[2020-12-07] MEDS ORDERED: ePHEDrine sulfate 50 MG/ML SYR ONE (06:50)
[2020-12-07] MEDS ORDERED: ORTHO JOINT ANESTHETIC ONE (06:55)
--- NOTE | 2020-12-07 07:08 | History & Physical Bridge Note ---
Date of Service December 07, 2020 History & Physical Bridge Note I have examined the patient, reviewed the History & Physical and in the interval since the performance of the History & Physical I have noted the following changes of clinical significance: no changes noted
[2020-12-07] MEDS ORDERED: ePHEDrine sulfate 50 MG/ML AMP IV PRN (07:19)
[2020-12-07] MEDS ORDERED: PHENYLEPHRINE 100MCG/ML 5ML SYR IV PRN (07:19)
[2020-12-07] MEDS ORDERED: ATROPINE SULFATE 0.1 MG/ML 10ML SYR IV PRN (07:19)
[2020-12-07] MEDS ORDERED: HYDROmorphone INJ 1 MG/ML SYRINGE IV PRN (07:19)
[2020-12-07] MEDS ORDERED: ONDANSETRON INJ 2 MG/ML 2 ML VIAL IV PRN ×3 (07:19→15:49)
[2020-12-07] MEDS ORDERED: fentaNYL citrate 100 MCG/2 ML VIAL IV PRN (07:19)
[2020-12-07] MEDS ORDERED: MEPERIDINE HCL 25 MG/ML CARP/VIAL IV PRN (07:19)
[2020-12-07] MEDS ORDERED: LABETALOL HCL IV 5 MG/ML 20ML IV PRN (07:19)
[2020-12-07] MEDS ORDERED: MEPIVACAINE HCL 2% 20 ML VIAL ONE (07:28)
--- NOTE | 2020-12-07 09:16 | Post Operative Brief Note ---
Immediate Post Op Note v1 Date of Surgery December 07, 2020 Pre & Post Diagnosis Operation Date: 12/07/20 07:15 Pre-Op Diagnosis: Unilateral Primary Osteoarthritis Knee Right Post-Op Diagnosis: Unilateral Primary Osteoarthritis Knee Right I identified the patient and participated in the time-out.: Yes Procedure Operation Date: 12/07/20 07:15 Actual Procedures p Right Total Knee Arthroplasty(Right) - Baltazar Phillips MD Surgeon Baltazar Phillips MD [employer] Ground Operations Supervisor Ousmane GA Estimated Blood Loss 5 Findings Consistent with Post-Op Diagnosis Specimens Bone cuts Drains Hemovac Drain Anesthesia Type MAC Spinal Regional Complications none Disposition Disposition: Recovery Room Overlapping Procedure I was immediately available: during the entire case.
[2020-12-07] MEDS ORDERED: bisacodyL 10 MG SUPP PR PRN ×2 (09:22→15:49)
[2020-12-07] MEDS ORDERED: METOCLOPRAMIDE HCL INJ 5 MG/ML 2 ML VIAL IV PRN ×2 (09:22→15:49)
[2020-12-07] MEDS ORDERED: NALOXONE HCL 0.4 MG/1 ML VIAL/CARP IV PRN ×2 (09:22→15:49)
[2020-12-07] MEDS ORDERED: HYDROmorphone INJ 0.5 MG/0.5 ML SYR IV PRN (09:22)
[2020-12-07] MEDS ORDERED: MAGNESIUM HYDROXIDE SUSP 30 ML UDC PO PRN ×2 (09:22→15:49)
--- NOTE | 2020-12-07 09:42 | Operative Report ---
Post Operative Report Pre & Post Diagnosis Operation Date: 12/07/20 07:15 Pre-Op Diagnosis: Unilateral Primary Osteoarthritis Knee Right Post-Op Diagnosis: Unilateral Primary Osteoarthritis Knee Right I identified the patient and participated in the time-out.: Yes Procedure Operation Date: 12/07/20 07:15 Actual Procedures p Right Total Knee Arthroplasty(Right) - Baltazar Phillips MD Surgeon Baltazar Phillips MD Bond Trader Ousmane GA Estimated Blood Loss 5 Findings Consistent with Post-Op Diagnosis Specimens Bone cuts Drains 2 Hemovac Anesthesia Type MAC Spinal Regional Complications none Disposition Accompanied Patient To Recovery: No Disposition: Recovery Room Indications 75-year-old female with bilateral osteoarthritis of the knees. Radiographically her left knee is worse than the right but her right is much more painful than her left. She had arthroscopy the knee but we failed to relieve her symptoms. She has tricompartmental osteoarthritis varus knee joint space narrowing close to but not [id number] yet. Arthroscopic findings demonstrated tricompartmental osteoarthritis with meniscus tears. Description of Procedure Patient was taken to the operating room placed supine on the operating table and anesthetized under spinal MAC regional anesthesia. Exam under anesthesia demonstrated good range of motion with a varus knee healed scars from prior arthroscopic surgery small effusion. A pneumatic tourniquet was placed about the thigh of the right lower extremity. The right lower extremity was prepped and draped in usual sterile fashion. The leg was elevated exsanguinated with an Esmarch bandage and the pneumatic tourniquet was raised to 325 mm mercury. An anterior incision was made across the right knee. The skin was incised longitudinally subcutaneous flaps were elevated and an incision was made through the medial retinaculum extending up into the mid third of the quadriceps tendon and extended down to the medial tibial tubercle. Intra-articular findings demonstrated tricompartmental osteoarthritis tricompartmental osteophytes. Most severe arthritis was in the medial compartment. There was significant articular thinning close to [id number]. There was a partial ACL tear with just a remnant of the ACL remaining. Evidence of partial meniscectomies. The knee was exposed by excising the infrapatellar fat pad, excising the meniscal remnants and anterior cruciate ligament remnant. Any inflamed synovial tissue was resected. The fat pad over the anterior femur was resected for placement of the component in that area. The lateral synovial bands were released. The femur was exposed. The custom femoral cutting block was pinned in position. The distal femoral cutting block was applied. The distal femoral cut was made with the oscillating saw. The size 7, 4-in-1 cutting block was placed. The anterior and posterior chamfer cuts were made. The knee was extended and a subperiosteal peel lateral release was performed around the patella. The patella width was measured and width was reproduced using freehand cut technique. The 29 millimeter symmetrical patella was used. 3 drill holes are made for the pegs. The tibia was exposed. A custom tibial cutting block was positioned and drill holes were made for the cutting guide. Cutting guide was placed and the proximal cut was made with the oscillating saw. All osteophytes were resected. The lamina play back operator was used to assess ligamentous balance and the ligaments were balanced in extension and flexion. The tibia was reexposed and measured for a size D tibial component. This was externally rotated in line with the tibial tubercle and the fixation pins were drilled. The proximal tibia was fashioned with the drill and punch. The size 7 CR femoral trial was inserted. The trial MC inserts were used. The 10 mm insert gave balanced ligaments through full range of motion. The patella tracked some lateral patellar tilt but central tracking so I did an extra-articular lateral release leaving the synovium intact and the patella tracked centrally with no tilt. the trials were removed. The orthomix anesthetic cocktail was injected per protocol. The knee was then copiously irrigated with pulsatile lavage saline solution. The final components were cemented with Refobacin bone cement. The final components were [employer] persona right 7 narrow CR femoral component, D tibial component, 10 MC polyethylene, 29 symmetrical patella. After the cement cured with the knee in full extension the Betadine soak was used per protocol. The knee joint was copiously irrigated with pulsatile lavage saline solution . 2 drains were brought out laterally and connected to a Hemovac. The quadriceps tendon and medial retinaculum were closed with interrupted [id number] #1 Vicryl sutures. The knee was taken through a full range of motion and repair was secure. The subcutaneous tissues were closed with 2-0 Vicryl sutures and skin was closed with rocio. Sterile dressings were applied and the patient tolerated the procedure well. Ousmane GA my physician inventory assistant, assisted in soft tissue retraction, instrument management ,leg positioning, the closure and will participate in the postoperative care of the patient. I attest to the content of the Intraoperative Record and any orders documented therein. Any exceptions are noted below.
--- NOTE | 2020-12-07 10:03 | XRay Report ---
TWO VIEWS RIGHT KNEE CLINICAL HISTORY: Postoperative examination. FINDINGS: AP and crosstable lateral portable views of the right knee are obtained. A right knee arthr oplasty is in near anatomic alignment. There has been undersurface remodeling of the patella. No acut e fracture is seen. There are expected postoperative changes around the knee including skin clips, a surgical drain, soft tissue edema, and subcutaneous gas. IMPRESSION: Expected postoperative changes status post right knee arthroplasty. No acute fracture is seen. ACT 112: Negative or not required by law. Electronically signed by: Heber Roger M.D. 12/07/2020 10:01 AM
[2020-12-07] MEDS ORDERED: KETOROLAC 30 MG/ML VIAL IV ONE (10:06)
[2020-12-07] MEDS ORDERED: ONDANSETRON INJ 2 MG/ML 2 ML VIAL ONE (10:07)
[2020-12-07] MEDS ORDERED: DEXAMETHASONE SOD INJ 4 MG/ML VIAL ONE (10:07)
--- NOTE | 2020-12-07 10:07 | Anesthesiology Progress Note ---
Date of Service December 07, 2020 Anesthesia Post Procedure Vital Signs Vital Signs: Temp Pulse Pulse Resp BP Pulse Ox 12/07/20 09:50 36.3 C L 74 13 137/60 97 12/07/20 09:40 82 18 134/71 98 12/07/20 09:30 85 14 129/52 L 99 12/07/20 09:20 36.6 C 75 16 116/57 L 94 12/07/20 06:04 36.6 C 73 18 179/87 H 98 Pain Intensity Right Knee: Pain Intensity: 2 Transfer of Care Handoff Completed per policy Notes Mental Status: alert / awake / arousable Patient Amnestic to Procedure: Yes Nausea / Vomiting: adequately controlled Pain: adequately controlled Airway Patency, RR, SpO2: stable & adequate BP & HR: stable & adequate Hydration State: stable & adequate Neuraxial Anesthesia: was administered and sensory block is resolving Anesthetic Complications: no major complications apparent and Pt Satisfied with anesthetic care
[2020-12-07] MEDS ORDERED: KETOROLAC 30 MG/ML VIAL ONE (10:10)
[2020-12-07] MEDS: oxyCODONE HCL IR 5 MG TAB (IMMEDIATE RELEASE) PO PRN (11:26)
[2020-12-07] MEDS ORDERED: PHARMACY GLYCEMIC MGMT CONSULT PRN (15:49)
[2020-12-07] MEDS ORDERED: MUPIROCIN 2% OINT 22 GM TUBE EXT PRN (16:10)
[2020-12-07] MEDS ORDERED: DEXTROSE 50% 50 ML SYRINGE IV PRN (16:30)
[2020-12-07] MEDS ORDERED: GLUCOSE 10 TABS/TUBE PO PRN (16:30)
[2020-12-07] MEDS ORDERED: GLUCOSE 40% GEL 15 GM TUBE PO PRN (16:30)
[2020-12-07] MEDS ORDERED: CARBOHYDRATES FOR HYPOGLYCEMIA PO PRN (16:30)
[2020-12-07] MEDS ORDERED: GLUCAGON FOR INJ 1 MG VIAL IM PRN (16:30)
[2020-12-07] MEDS: SODIUM CHLORIDE 0.9% 1000ML 1,000 ML IV SCH ×3 (18:53→19:24)
[2020-12-07] MEDS: ACETAMINOPHEN 500 MG TAB PO SCH ×2 (19:00→21:53)
[2020-12-07] MEDS: ceFAZolin 1000MG 1,000 MG/7.5 ML SYR IV SCH (19:25)
[2020-12-07] MEDS ORDERED: diphenhydrAMINE Capsule 25 MG CAP PO ONE (20:43)
[2020-12-07] MEDS ORDERED: diphenhydrAMINE Capsule 25 MG CAP ONE (20:49)
[2020-12-07] MEDS ORDERED: cephALEXin 500 MG CAP PO SCH (21:00)
[2020-12-07] MEDS ORDERED: DOCUSATE SODIUM 100 MG CAP PO SCH (21:00)
[2020-12-07] MEDS ORDERED: AMOXICILLIN/CLAVULANATE 875MG HOME PACK PO SCH (21:00)
[2020-12-07] MEDS ORDERED: ASCORBIC ACID 500 MG TAB PO SCH (21:00)
[2020-12-07] MEDS ORDERED: SENNA 8.6 MG TAB PO SCH ×2 (21:00)
[2020-12-07] MEDS: INSULIN ASPART 100 UNITS/ML 3 ML PEN SC SCH (21:38)
[2020-12-07] MEDS: DOCUSATE SODIUM 100 MG CAP PO SCH (21:52)
[2020-12-07] MEDS: ASPIRIN 81 MG ECTAB PO SCH (21:53)
[2020-12-07] MEDS: CALCIUM 600MG + VIT D 400 IU TAB PO SCH (21:53)
[2020-12-08] MEDS: SODIUM CHLORIDE 0.9% 1000ML 1,000 ML IV SCH (00:47)
[2020-12-08] MEDS: ceFAZolin 1000MG 1,000 MG/7.5 ML SYR IV SCH (01:45)
--- NOTE | 2020-12-08 03:58 | Consultation ---
Date of Consultation December 07, 2020 Assessment & Plan (1) Status post total right knee replacement: Surgery well tolerated. Pain is well controlled -Pain regimen, anti-emetics and bowel regimen per primary team -Ice wrap -NV checks -Activity instruction per primary team -PT/OT evaluation (2) Diabetes: Glycemic management team has been consulted by primary team -Goal blood sugar 110 - 140 -CF 30, CR=10 (3) Dyslipidemia: Chronic -Continue Atorvastatin (4) GERD (gastroesophageal reflux disease): Chronic -Continue Protonix 40mg po daily (5) Hypothyroidism: Chronic -Continue Synthroid 88mcg q 96 hrs History of Present Illness Requesting Physician: Dr. Phillips Reason for Consultation: Post-operative medical management Attending Physician: Baltazar Phillips MD History of Present Illness We have been asked to see Faye Ochoa for post- operative medical management. Faye is a 75yo female with history of well- controlled DM on Metformin therapy, GERD, HLP and Hypothyroidism s/p right knee TKA performed today by Dr. Phillips. The surgery was performed under MAC/spinal regional, was well tolerated with minimal blood loss. Patient is presently comfortable, no pain. She has urinated and has had oral intake without difficulty. No additional complaints at this time. Allergies Allergy/AdvReac Type Severity Reaction Status Date / Time nitrofurantoin Allergy Intermediate Hives Verified 12/07/20 05:44 [From Macrobid] pepper (genus Capsicum) Allergy Intermediate Skin Verified 12/07/20 05:44 Blisters (with pepper contact) adhesive Allergy Mild Rash (some Verified 12/07/20 05:44 tapes) Home Medications Medication Instructions Recorded Confirmed Type atorvastatin 10 mg tablet (Lipitor) 5 mg PO QAM 03/21/19 12/07/20 History metformin 500 mg tablet 500 mg PO QAM 03/21/19 12/07/20 History multivitamin 1 tab PO QAM 12/31/19 12/07/20 History meloxicam 15 mg tablet 15 mg PO QAM 04/01/20 12/07/20 History esomeprazole magnesium 20 mg 15 mg PO QAM cap 10/29/20 12/07/20 History capsule,delayed release (Nexium) levothyroxine 75 mcg tablet 75 mcg PO DIRECTED 10/29/20 12/07/20 History (Synthroid) levothyroxine 88 mcg tablet 88 mcg PO DIRECTED 10/29/20 12/07/20 History (Synthroid) calcium citrate 315 mg-vitamin D3 1 tab PO BID 11/10/20 12/07/20 History 5 mcg (200 unit) tablet (Calcium Citrate + D) ascorbic acid (vitamin C) 500 mg 500 mg PO QPM 11/18/20 12/07/20 History tablet (Vitamin C) mupirocin 2 % topical ointment 1 applic TOPICAL BID PRN 11/18/20 12/07/20 History amoxicillin 875 mg-potassium 1 tab PO BID 7 Days #14 tab 11/27/20 12/07/20 Rx clavulanate 125 mg tablet (Augmentin) cephalexin 500 mg capsule 500 mg PO BID 3 Days #6 cap 12/02/20 12/07/20 Rx acetaminophen 500 mg tablet 1,000 mg PO Q8 #60 tab 12/07/20 Rx (Tylenol Extra Strength) aspirin 81 mg tablet,delayed 81 mg PO BID #60 tab 12/07/20 Rx release cefadroxil 500 mg capsule 500 mg PO BID #28 cap 12/07/20 Rx ondansetron HCl 4 mg tablet 4 mg PO Q8H PRN #20 tab 12/07/20 Rx (Zofran) oxycodone 5 mg tablet 5 - 10 mg PO .Q4h-6h PRN #30 tab 12/07/20 Rx MDD 6 Patient History Medical History Back pain Depression Diabetes NIDDM Dyslipidemia GERD (gastroesophageal reflux disease) controlled Hypercholesterolemia Hypothyroidism Osteoarthritis PVC's (premature ventricular contractions) s/p holter monitor Surgical History (Updated 12/08/20 @ 04:01 by Pennie Medel DO) H/O sinus surgery x2 History of colonoscopy 2011 History of foot surgery Right ligament repair History of hysterectomy 1976 History of oophorectomy History of shoulder surgery Right History of thyroidectomy r/t goiter Previous back surgery 1983 (+ injection) Status post total right knee replacement Family History Sister Hypertension Breast cancer Colorectal cancer Grandmother (Maternal) Cancer Ovarian cancer Mother Heart disease Cardiac arrest Congestive heart failure Diabetes Myocardial infarction Father Parkinsons disease Denies family history of Hearing loss No family history of adverse response to anesthesia No family history of bleeding disorder Stroke Asthma Social History (Updated 11/18/20 @ 08:23 by Ronda Huang RN) Smoking Status: Former smoker packs per day: 1; Smoking End Date: Quit age 30; Second Hand Exposure: Yes (RARELY); Do You Dip or Chew Tobacco: No; Hx Alcohol Use: Yes Alcohol Intake Frequency Comment: Very seldom Hx Substance Use: No Preferred Language: Thai Communication Ability: Effective Straw Hat Presser Required: No Beliefs That Will Affect Care: None marital status: / Current Living Situation: Alone Current Living Situation Comment: SON LIVES WITH PT current occupational status: retired Other Information That Helps Us Care for You: No Feels Safe at Home: Yes Safety Concerns: Feels Safe At This Time Assistive Devices: Walker Review of Systems Review of Systems: All systems reviewed & are unremarkable except as noted in HPI & below Physical Exam Physical Exam: General: patient resting comfortably, NAD, non-toxic in appearance, AA&O x 4 Skin: warm, dry, intact, no rashes or lesions HEENT: NC/AT, PERRL, EOMI, anicteric sclera, conjunctiva without injection, external ear normal to inspection and nontender, nares patent, moist mucus mem branes, dentition intact, no oropharyngeal lesions, neck supple, trachea midline, no LAD, no thyromegaly, no JVD Heart: +S1/S2, regular, no m/r/g Lungs: equal air entry bilaterally, no rales/rhonchi/wheezes Abd: +BS, soft, NT/ND, no masses/organomegaly/ascites Ext: warm, 2+ pulses in UE/LE bilaterally, no clubbing/cyanosis or edema, ice pack present on right knee, drain in place with minimal bloody output Neuro: nonfocal, patient AA&O x 4, speech intact, no facial droop, moving all extremities on command with equal strength 5/5 Results & Data ([facility]) Vital Signs (Past 12 Hours) Vital Signs Temp Pulse Pulse Resp BP BP Pulse Ox 12/08/20 03:21 36.4 C L 68 16 138/80 95 12/07/20 22:00 36.6 C 67 18 135/75 95 12/07/20 20:45 36.9 C 77 16 129/76 96 12/07/20 19:15 36.4 C L 66 18 133/80 97 12/07/20 18:21 36.8 C 69 18 148/64 H 98 12/07/20 17:50 36.7 C 70 20 120/81 96 12/07/20 17:23 36.7 C 74 18 168/85 H 98 12/07/20 16:25 65 18 146/73 H 95 Laboratory Results Laboratory Results POC Glucose 108 mg/dl (70-99) H 12/07/20 20:44 Impressions Knee X-Ray 12/07/20 09:24 TWO VIEWS RIGHT KNEE CLINICAL HISTORY: Postoperative examination. FINDINGS: AP and crosstable lateral portable views of the right knee are obtained. A right knee arthroplasty is in near anatomic alignment. There has been undersurface remodeling of the patella. No acute fracture is seen. There are expected postoperative changes around the knee including skin clips, a surgical drain, soft tissue edema, and subcutaneous gas. IMPRESSION: Expected postoperative changes status post right knee arthroplasty. No acute fracture is seen. ACT 112: Negative or not required by law. Electronically signed by: Heber Roger M.D. 12/07/2020 10:01 AM PG Care Time/CCT Total # of Minutes Spent Total Time Spent with Patient: Total time spent is greater than 50% in coordination of care (as documented) at patient's floor/unit and/or counseling patient: Coding Level of Care Code 02475 Inpt Consult Level 3 Diagnoses Diabetes E11.9 Dyslipidemia E78.5 GERD (gastroesophageal reflux disease) K21.9 Hypothyroidism E03.9 Status post total right knee replacement Z96.651
[2020-12-08] MEDS: oxyCODONE HCL IR 5 MG TAB (IMMEDIATE RELEASE) PO PRN ×2 (04:33→09:16)
[2020-12-08] MEDS: ACETAMINOPHEN 500 MG TAB PO SCH (05:39)
[2020-12-08] MEDS ORDERED: LEVOTHYROXINE SODIUM 88 MCG TABLET PO SCH (06:30)
[2020-12-08 06:37] LABS: Hemoglobin 11.5 g/dL (12.0-16.0); Mean Corpuscular Hemoglobin 27.6 pg (25-34); Mean Corpuscular Hgb Conc 32.9 g/dL (32-36); Mean Corpuscular Volume 84.1 fL (80-100); Mean Platelet Volume 9.8 fL (7.4-10.4); Platelet Count 230 K/uL (130-400); RDW Standard Deviation 42.7 fL (36.4-46.3); Red Blood Count 4.16 M/uL (4.2-5.4); White Blood Count 9.04 K/uL (4.8-10.8)
--- NOTE | 2020-12-08 07:05 | Orthopedic Progress Note ---
Date of Service December 08, 2020 Assessment & Plan (1) Status post total right knee replacement: Plan: POD#1 Right TKA -PT/OT -Pain management as written -DVT prophylaxis-ASA 81mg BID, SCDs, TEDs -AM labs-hemoglobin at 11.5, chemistries pending -D/C planning-home with home health PT. Will continue hemovac at discharge, to be pulled by HH if discharged today. Will see how she does with PT. Admission and Anticipated Discharge Date Admission Date: December 07, 2020 Subjective Patient is postop day right total knee. She is doing better this morning. Some pain, controlled with pain medication. She was admitted yesterday as her block was still in effect. States that she has been ambulating better. No other complaints. Denies chest pain, shortness of breath, fever, chills, headache, nausea/vomiting/diarrhea. Review of Systems Review of Systems: All systems reviewed & are unremarkable except as noted in Subjective Physical Exam Physical Exam: Right knee dressing is clean/dry/intact. Toes mobile. Good dorsiflexion. No calf tenderness. Distally n/v status and sensation intact. Constitutional: well developed and well nourished; no acute distress Results & Data ([facility]) Vital Signs (Past 12 Hours) Vital Signs Temp Pulse Resp BP Pulse Ox 12/08/20 03:21 36.4 C L 68 16 138/80 95 12/07/20 22:00 36.6 C 67 18 135/75 95 12/07/20 20:45 36.9 C 77 16 129/76 96 12/07/20 19:15 36.4 C L 66 18 133/80 97
[2020-12-08 07:17] LABS: BUN Creatinine Ratio 11.9 (10-20); Calcium 8.6 mg/dl (8.5-10.1); Creatinine Clr Calc Pharmacy 54.3 ml/min; Est GFR (African American) 70.6 ml/min; Est GFR (Non-African American) 60.9 ml/min
[2020-12-08] MEDS ORDERED: metFORMIN HCL 500 MG TAB PO SCH (08:00)
[2020-12-08] MEDS ORDERED: PANTOprazole 40 MG TAB PO SCH (09:00)
[2020-12-08] MEDS ORDERED: MULTIVITAMIN TAB PO SCH ×3 (09:00)
[2020-12-08] MEDS ORDERED: ATORVASTATIN 10 MG TAB PO SCH (09:00)
[2020-12-08] MEDS ORDERED: MELOXICAM 7.5 MG TAB PO SCH (09:00)
--- NOTE | 2020-12-08 09:16 | Pharmacy Report ---
Pharmacy Glycemic Short Note 2 - Date of Service December 08, 2020 - Glycemic Short BSG Results (Last 24 hours): 12/07/20 12/07/20 12/07/20 09:24 19:15 20:44 Glucose POC Glucose 132 H 96 108 H 12/08/20 12/08/20 06:02 08:12 Glucose 103 H POC Glucose 96 OUTPATIENT ANTIDIABETIC REGIMEN: * Metformin 500 mg PO daily * HbA1c: 5.9% (11/26/20) ASSESSMENT: * MELANIE is a 75 year old female POD #1 s/p right TKA * BSGs very well controlled postoperatively (96-132 mg/dL) * BSG of 96 mg/dL this morning, labs ordered this morning and renal function appears to be at baseline (SCr: 0.92 mg/dL) * Will remove carb coverage from Novolog and start patient's home metformin today * Possible discharge today with home health PLAN FOR INPATIENT GLYCEMIC CONTROL: * Resume outpatient metformin * Basal insulin * Hold * Bolus insulin * NovoLog per scale ACHS or Q6hrs while NPO * Goal Range: Low 110 mg/dL - High 140 mg/dL * Correction Factor: 30 mg/dL/unit * Hold carb coverage PLAN FOR DISCHARGE: * HbA1c of 5.9% is at goal - continue current outpatient regimen (metformin 500 mg PO daily)
[2020-12-08] MEDS: ASPIRIN 81 MG ECTAB PO SCH (09:19)
[2020-12-08] MEDS: CALCIUM 600MG + VIT D 400 IU TAB PO SCH (09:20)
[2020-12-08] MEDS: DOCUSATE SODIUM 100 MG CAP PO SCH (09:21)
[2020-12-08] MEDS: INSULIN ASPART 100 UNITS/ML 3 ML PEN SC SCH (09:26)
--- NOTE | 2020-12-08 16:42 | Discharge Summary ---
Date of Service December 08, 2020 Admission HPI Per Admitting Provider 75-year-old female with past medical history significant for hypothyroidism, GERD, recurrent UTI, DM 2 who presents with ongoing right knee pain. Pain is interfering with her ability to carry out normal daily activities. She has failed conservative measures including anti-inflammatories, injections, therapy. She previously underwent arthroscopy with no relief in her knee pain. She would like to proceed with replacement. Patient denies headaches, sweats, fevers, chills, double vision, blurred vision, cough, sore throat, dysphagia, chest pain, sob, wheezing, n/v/d/c, numbness, tingling, fatigue, urinary sym ptoms, mood disorders. ROS positive for right knee pain and stiffness. Admission Exam Per Admitting Provider Constitutional: well developed and well nourished; no acute distress Eyes: PERRL, conjunctivae normal, anicteric sclerae ENMT: external ear and nose normal, oropharynx normal Neck: trachea midline, no thyromegaly Respiratory: normal respiratory effort, lungs clear to auscultation Cardiovascular: RRR, no murmur, no edema Musculoskeletal: Right knee: Active painful range of motion 0- 105 degrees. She is a mild effusion. Tenderness medial joint line. Swetha's is guarded, stable valgus varus stress test. Skin: no rashes, warm and dry Neurologic: patellar DTR's 2+ bilat, sensation intact Psychiatric: A+Ox3, euthymic affect Principal Diagnosis Right knee osteoarthritis Discharge Exam Constitutional well developed and well nourished; no acute distress Eyes PERRL, conjunctivae normal, anicteric sclerae ENMT external ear and nose normal, oropharynx normal Neck trachea midline, no thyromegaly Respiratory normal respiratory effort, lungs clear to auscultation Cardiovascular RRR, no murmur, no edema Skin no rashes, warm and dry Neurologic patellar DTR's 2+ bilat, sensation intact Psychiatric A+Ox3, euthymic affect Discharge Data Allergies Allergy/AdvReac Type Severity Reaction Status Date / Time nitrofurantoin Allergy Intermediate Hives Verified 12/07/20 05:44 [From Macrobid] pepper (genus Capsicum) Allergy Intermediate Skin Verified 12/07/20 05:44 Blisters (with pepper contact) adhesive Allergy Mild Rash (some Verified 12/07/20 05:44 tapes) Consultations 12/07/20 05:00 Consult Hospitalist Routine Procedures Performed Operation Date: 12/07/20 07:15 Actual Procedures p Right Total Knee Arthroplasty(Right) - Baltazar Phillips MD Ordered Studies 12/07/20 05:00 US - OR guided needle placemen Routine Hospital Course (1) Status post total right knee replacement: Patient presented for same day admission following right total knee arthroplasty on 12/07/20. Originally scheduled for outpatient surgery however due to residual weakness from the block she was admitted. She tolerated procedure well. The Patient had an uneventful hospital course. Post-operatively, her activity was progressed and well tolerated. They participated in PT with ambulation distance of 100 feet. ROM of operative knee reached 70 degrees. Labs remained stable- lowest hemoglobin recorded: 11.5. Pain controlled on oral medications. Please refer to daily progress notes and PT notes for complete details. After exam on 12/08/20, patient was felt to be stable for discharge home with home health PT. Patient will f/u in the office in about 2 weeks for further evaluation including x-rays and incision check, sooner if having any issues or concerns. POD#1 Right TKA -PT/OT -Pain management as written -DVT prophylaxis-ASA 81mg BID, SCDs, TEDs -AM labs-hemoglobin at 11.5, chemistries pending -D/C planning-home with home health PT. Will continue hemovac at discharge, to be pulled by if discharged today. Will see how she does with PT. Total Time Total Time Spent Total Time Spent (In Minutes): 20 Discharge Plan Discharge Items Patient Disposition: Home - Home Health Services Reason For Visit: Unilateral Primary Osteoarthritis Knee Right Discharge Diagnosis: Right knee osteoarthritis Activity: Per Instructions section Non-emergency contact: Surgeon Call non-emergency contact if: you have any medication questions, your pain is worsening, your pain is concerning for you, you have a fever, your temperature is above 101, your wound has increased redness and your wound has increased drainage Follow-up/Referrals: Flaquito Neal [Primary Care Provider] - [facility] [Non-Staff] - (PER SURGEON'S OFFICE) Diet: Regular Addtl Attending Provider Instructions: ACTIVITY RECOMMENDATIONS: SELF CARE INSTRUCTIONS AFTER TOTAL KNEE REPLACEMENT A. You may need to continue a physical therapy program after discharge from the hospital. There are several options available to you. Your doctor will assist you in selecting the best one for you. 1. An out-patient facility 2 to 3 times a week for therapy or home therapy. 2. Continue working on all exercises taught to you in the hospital. Your goals should be to increase bending of your knee to 90 degrees and beyond and to fully straighten your knee. B. You may progress at your own pace from walking with a walker or crutches to a cane; then to no assistive devices. C. Make walking a part of your daily routine. Be up as much as comfortable with rest periods throughout the day. Rest with leg elevation is very important. Use the ice wrap frequently for the first 3-4 weeks. D. There are no restrictions on activities. You may ride in a car, shop, participate in passenger car inspector and all social activities. E. Wear the long elastic stockings (MIKE hose) 20 hours a day for 2 weeks after surgery. They can be removed several times a day for laundering and for a bath. F. You may shower, no tub baths until cleared by your doctor. SPECIAL CARE INSTRUCTIONS: VERY IMPORTANT TO READ AND REVIEW A. There are a few signs you need to watch for after you are home. Call [facility] if you notice any of the followin. Increased severe knee pain. Some pain is expected especially when you exercise. 2. Increased swelling in your leg or knee; pain or swelling of the calf muscle in either lower leg. 3. Any fluid drainage from the incision. 4. Shortness of breath or chest pain. B. Please call [facility] at if you have any concerns or questions about your operation or recovery. The doctor or his nurse will return your call promptly. C. You must take antibiotics before dental work, bladder, bowel or other surgery. Your doctor will provide you with a permanent care to carry describing this precaution. IMPORTANT: * REMEMBER TO TAKE ASPIRIN, 81 MG, TWICE DAILY FOR 4 WEEKS UNLESS OTHERWISE DIRECTED. THIS IS YOUR BLOOD THINNER. * HIGH RISK PATIENTS MAY BE PRESCRIBED A STRONGER BLOOD THINNER. THIS WILL BE PROVIDED AT DISCHARGE. * CALL IF INCREASED PAIN, REDNESS, DRAINAGE OR FEVER GREATER THAT 101. * WEAR MIKE HOSE 20 HOURS PER DAY FOR 2 WEEKS. * You have a dressing over your incision. This should stay on for 48 hours and then you may remove the sarina wrap and bandage. After this you may perform daily dressing changes with dry dressings. You should not submerge incision and may get wet in the shower indirectly after 48 hours. IF INCISION IS LEAKING THROUGH DRESSING, CALL THE OFFICE . Home health to remove hemovac on POD#2 FOLLOW UP VISIT: If appointment is not already scheduled: Please call [facility] to make a follow-up appointment for 2 weeks after your surgery at . We would also recommend you schedule an appointment with RAZA Rocha in our office for evaluation of your bone health as previously discussed. Stand-Alone Forms: Anesthesia/Sed Adult [facility], [facility], Opioid Pain Management Medications and DC Order Prescriptions: New acetaminophen [Tylenol Extra Strength] 500 mg Tablet 1,000 mg PO Q8 Qty: 60 RF: 0 aspirin 81 mg Tablet,Delayed Release (Dr/Ec) 81 mg PO BID Qty: 60 RF: 0 oxycodone 5 mg Tablet 5 - 10 mg PO .Q4h-6h MDD 6 PRN (Reason: pain) Qty: 30 RF: 0 ondansetron HCl [Zofran] 4 mg tablet 4 mg PO Q8H PRN (Reason: nausea and vomiting) Qty: 20 RF: 0 cefadroxil 500 mg capsule 500 mg PO BID Qty: 28 RF: 0 Continued levothyroxine [Synthroid] 88 mcg tablet 88 mcg PO DIRECTED RF: 0 levothyroxine [Synthroid] 75 mcg tablet 75 mcg PO DIRECTED RF: 0 esomeprazole magnesium [Nexium] 20 mg capsule,delayed release(DR/EC) 15 mg PO QAM RF: 0 multivitamin Tablet 1 tab PO QAM RF: 0 metformin 500 mg tablet 500 mg PO QAM RF: 0 atorvastatin [Lipitor] 10 mg tablet 5 mg PO QAM RF: 0 meloxicam 15 mg tablet 15 mg PO QAM RF: 0 mupirocin 2 % ointment 1 applic topical BID PRN (Reason: Rash) RF: 0 ascorbic acid (vitamin C) [Vitamin C] 500 mg Tablet 500 mg PO QPM RF: 0 calcium citrate-vitamin D3 [Calcium Citrate + D] 315 mg-5 mcg (200 unit) Tablet 1 tab PO BID RF: 0 Discontinued amoxicillin-pot clavulanate [Augmentin] 875-125 mg tablet 1 tab PO BID 7 Days Qty: 14 RF: 0 omega-3 fatty acids 500 mg capsule 500 mg PO BID RF: 0 aspirin [Adult Low Dose Aspirin] 81 mg tablet,delayed release (DR/EC) 81 mg PO Q2D RF: 0 cephalexin 500 mg capsule 500 mg PO BID 3 Days Qty: 6 RF: 11 acetaminophen [Tylenol Arthritis] 650 mg Tablet Extended Release 1,300 mg PO Q12H PRN (Reason: Pain) RF: 0 Discharge Orders: Discharge Order (Routine); Ordered 12/08/20 Ordered By: Redd Reeves/Other Patient Handouts: DVT Post Op Prevention Admission Data Admit Date/Time: 12/07/20 15:49 Attending Provider: Baltazar Phillips Admit Provider: Baltazar Phillips Primary Care Provider: Flaquito Neal Other Providers: Farideh Tyler ; [facility] Other Interventions: Discharge Summary Assessment (RN) Last Done: 12/08/20 10:50
[2020-12-09] MEDS ORDERED: LEVOTHYROXINE SODIUM 88 MCG TABLET PO SCH (06:30)
[2020-12-10] MEDS ORDERED: LEVOTHYROXINE SODIUM 88 MCG TABLET PO SCH (06:30)
[2020-12-11] MEDS ORDERED: LEVOTHYROXINE SODIUM 75 MCG TABLET PO SCH (06:30)
== END 2020-12-08 12:20 | disposition home health service (06) ==
LOC: 3N 05:12 → ASU 05:12